=== PATIENT | female | born 1940 | race Caucasian/White ===

== ENCOUNTER 2018-01-15 17:42 | Observation (INO) | payer MEDICARE ==
[~2018-01-15] VITALS: Ht 157.5 cm; Wt 65.9 kg
[2018-01-15 19:07] LABS: BASOPHILS 0.3 % (0-2); EOSINOPHILS 1.6 % (0-7); HEMATOCRIT 40.4 % (36.0-48.0); HEMOGLOBIN 14.1 g/dL (12-16); IMMATURE GRANULOCYTES 0.2 % (0-5); LYMPHOCYTES 24.6 % (15-50); MCH 32.8 pg (26.0-34.0); MCHC 34.9 g/dL (31.0-37.0); MEAN PLATELET VOLUME 10.9 fL (7.4-10.4); MONOCYTES 8.6 % (2-11); NEUTROPHILS 64.7 % (40-80); PLATELET COUNT 211 10x3/uL (130-400); RDW 12.7 % (11.5-14.5)
[2018-01-15 19:09] LABS: APPEARANCE CLEAR (CLEAR); BILIRUBIN NEGATIVE (NEGATIVE); COLOR YELLOW (YELLOW); GLUCOSE NEGATIVE (NEGATIVE); KETONE NEGATIVE (NEGATIVE); NITRITE NEGATIVE (NEGATIVE); PROTEIN NEGATIVE (NEGATIVE); UROBILINOGEN NORMAL (NORMAL)
[2018-01-15 19:20] LABS: ALBUMIN 3.7 g/dL (3.4-5.0); ANION GAP 10.3 mmol/L (8-16); BILIRUBIN - TOTAL 0.62 mg/dL (0.2-1.3); CALCIUM 8.7 mg/dL (8.5-10.1); CARBON DIOXIDE 30.4 mmol/L (21.0-32.0); POTASSIUM - SERUM 3.7 mmol/L (3.5-5.1)
[2018-01-15 19:48] VITALS: BP 159/50
[2018-01-15 19:51] VITALS: BP 166/70
[2018-01-15] MEDS ORDERED: ZETIA10 MG (21:12)
[2018-01-15] MEDS ORDERED: LEVOXYL75 MCG PO (21:12)
[2018-01-15] MEDS ORDERED: FLUTICASONE PRO16 GM NASAL (21:13)
[2018-01-15] MEDS ORDERED: ZOLOFT50 MG PO (21:13)
[2018-01-15] MEDS ORDERED: LISINOPRIL2.5 MG PO (21:13)
[2018-01-15] MEDS ORDERED: METFORMIN HCL500 M1 PO (21:14)
[2018-01-15 21:46] VITALS: BP 166/70; Ht 157.5 cm; Wt 65.9 kg
[2018-01-15 22:00] VITALS: BP 166/70
[2018-01-15 23:00] VITALS: BP 179/69
[2018-01-16] VITALS (15 sets, daily range): BP systolic 112–147; BP diastolic 41–66
[2018-01-16 04:54] LABS: BASOPHILS 0.3 % (0-2); EOSINOPHILS 2.4 % (0-7); HEMATOCRIT 39.5 % (36.0-48.0); HEMOGLOBIN 13.6 g/dL (12-16); IMMATURE GRANULOCYTES 0.3 % (0-5); LYMPHOCYTES 27.6 % (15-50); MCH 32.3 pg (26.0-34.0); MCHC 34.4 g/dL (31.0-37.0); MCV 93.8 fL (80.0-100.0); MONOCYTES 8.7 % (2-11); NEUTROPHILS 60.7 % (40-80); PLATELET COUNT 182 10x3/uL (130-400); RBC 4.21 10x6/uL (4.00-5.40); RDW 12.6 % (11.5-14.5); WBC 8.8 10x3/uL (4.8-10.8)
[2018-01-16 05:24] LABS: ALBUMIN 3.3 g/dL (3.4-5.0); ANION GAP 10.1 mmol/L (8-16); BILIRUBIN - TOTAL 0.71 mg/dL (0.2-1.3); CALCIUM 8.6 mg/dL (8.5-10.1); CARBON DIOXIDE 30.4 mmol/L (21.0-32.0); PROTEIN - SERUM 6.5 g/dL (6.4-8.2)
[2018-01-16 05:29] LABS: POTASSIUM - SERUM 4.5 mmol/L (3.5-5.1)
[2018-01-16] MEDS ORDERED: CHROMIUM PICO200 MC1 PO (10:41)
[2018-01-17 04:49] VITALS: BP 124/40
[2018-01-17 04:57] LABS: BASOPHILS 0.2 % (0-2); EOSINOPHILS 2.6 % (0-7); HEMOGLOBIN 12.5 g/dL (12-16); IMMATURE GRANULOCYTES 0.1 % (0-5); LYMPHOCYTES 25.1 % (15-50); MCH 32.1 pg (26.0-34.0); MCHC 34.7 g/dL (31.0-37.0); MCV 92.5 fL (80.0-100.0); MEAN PLATELET VOLUME 11.3 fL (7.4-10.4); MONOCYTES 8.4 % (2-11); NEUTROPHILS 63.6 % (40-80); PLATELET COUNT 196 10x3/uL (130-400); RBC 3.89 10x6/uL (4.00-5.40); RDW 12.7 % (11.5-14.5); WBC 8.5 10x3/uL (4.8-10.8)
[2018-01-17 05:02] LABS: ANION GAP 10.9 mmol/L (8-16); CALCIUM 7.8 mg/dL (8.5-10.1); CARBON DIOXIDE 27.8 mmol/L (21.0-32.0)
[2018-01-17 05:04] LABS: POTASSIUM - SERUM 3.7 mmol/L (3.5-5.1)
[2018-01-17 09:11] VITALS: BP 106/49
[2018-01-17 12:18] VITALS: BP 103/47
[2018-01-17 18:53] VITALS: BP 110/70
[2018-01-17 23:44] VITALS: BP 130/41
[2018-01-18 02:54] VITALS: BP 110/40
[2018-01-18 08:32] VITALS: BP 143/49
[2018-01-18 09:46] LABS: HEMOGLOBIN 12.7 g/dL (12-16)
[2018-01-18 11:54] VITALS: BP 112/46
[2018-01-18] MEDS ORDERED: FLAGYL500 MG PO (12:03)
== END 2018-01-18 14:38 | disposition home or self-care (01) ==
LOC: D.ER 17:42 → D.MS 21:10 → D.ICU 21:10 → D.EDHOLD 21:10 → D.ICU 21:10 → D.ER 21:10 → OBSVTIME 21:10 → D.EDHOLD 21:18 → D.ICU 21:18 → D.MS 01-16 14:04 → D.ICU 01-16 14:04 → D.MS 01-16 14:04
PROVIDERS: Emergency Medicine; Family Medicine; Internal Medicine Gastroenterology
DX: K92.2 Gastrointestinal hemorrhage, unspecified (principal); D62 Acute posthemorrhagic anemia; K52.9 Noninfective gastroenteritis and colitis, unspecified; K21.9 Gastro-esophageal reflux disease without esophagitis; I10 Essential (primary) hypertension; E11.9 Type 2 diabetes mellitus without complications